=== PATIENT | male | born 1970 | race Caucasian/White ===

== ENCOUNTER 2018-01-29 21:19 | Emergency (ER) | payer OTHER ==
[~2018-01-29] VITALS: Ht 182.8 cm; Wt 143.3 kg
[~2018-01-29 21:19] MED LIST: AMBIEN10 M1 PO; DEPO TESTOS200 MG/ML IM; FISH OIL500 M1 PO; HYDROCODONE BIT1 T11 PO; KLONOPIN1 M1 PO; Motrin,Rufen800 MG PO; NEXIUM40 MG PO; Orphenadrine C100 MG PO; ZOFRAN ODT4 MG SL; Zofran4 MG PO
[2018-01-29 21:35] LABS: BASO # 0.1 10*3/uL (0.0-0.1); BASO % 0.9 % (0.0-1.0); EOS # 0.3 10*3/uL (0.0-0.4); EOS % 2.2 % (1.0-4.0); HEMATOCRIT 44.6 % (42.0-52.0); HEMOGLOBIN 14.8 g/dl (14.0-18.0); LYMPH # 2.8 10*3/uL (1.3-4.4); MEAN CELL VOLUME 90.5 fl (80.0-94.0); MEAN CORPUSCULAR HGB CONC 33.2 g/dl (33.0-37.0); MEAN PLATELET VOLUME 12.3 fl (9.6-12.3); MONO # 0.6 10*3/uL (0.1-1.0); MONO % 5.5 % (3.0-9.0); NEUT # 7.4 10*3/uL (2.3-7.9); NEUT % 66.2 % (47.0-73.0); PLATELET COUNT AUTOMATED 209 10*3/uL (130-400); RED BLOOD COUNT 4.93 10*6/uL (4.50-5.90); RED CELL DISTRI WIDTH 13.2 % (0-14.5); WHITE BLOOD COUNT 11.2 10*3/uL (4.8-10.8)
[2018-01-29 21:45] LABS: ACT PARTIAL THROMBO TIME 23.5 SECONDS (20.8-31.5)
[2018-01-29 21:58] LABS: ALBUMIN 3.5 gm/dl (3.1-4.5); ALKALINE PHOSPHATASE 86 U/L (45-117); BUN 7 mg/dl (7-24); CHLORIDE 105 mmol/L (98-107); POTASSIUM 3.9 mmol/L (3.5-5.1); SGOT/AST 12 IU/L (3-35); SGPT/ALT 33 U/L (12-78); SODIUM 141 mmol/L (136-145); TOTAL PROTEIN 6.8 gm/dL (6.4-8.2)
[2018-01-29 21:59] LABS: TROPONIN I < 0.015 ng/ml (<0.045)
== END 2018-01-29 23:00 | disposition left against medical advice (07) ==
LOC: ED 21:19
PROVIDERS: Emergency Medicine
DX: R07.89 Other chest pain (principal); R73.9 Hyperglycemia, unspecified; G89.4 Chronic pain syndrome; Z79.899 Other long term (current) drug therapy; Z86.73 Personal history of transient ischemic attack (TIA), and cerebral infarction without residual deficits

== ENCOUNTER 2025-04-05 18:18 | Observation (INO) | payer OTHER ==
[~2025-04-05] VITALS: Ht 182.8 cm; Wt 122.1 kg
[2025-04-05] MEDS ORDERED: SODIUM CHLORIDE 0.9% 1,000 ML IV ONE (18:25)
[2025-04-05] MEDS ORDERED: IOHEXOL 350 MG/ML 100 ML VIAL IV ONE ×2 (18:48→18:55)
[2025-04-05] MEDS ORDERED: SODIUM CHLORIDE 0.9% 100 ML IV ONE (18:48)
[2025-04-05 18:54] LABS: BASO # 0.1 10*3/uL (0.0-0.1); BASO % 0.8 % (0.0-1.0); EOS # 0.1 10*3/uL (0.0-0.4); EOS % 1.6 % (1.0-4.0); MEAN CELL VOLUME 93.3 fl (80.0-94.0); MEAN CORPUSCULAR HGB 29.7 pg (27.0-31.0); MEAN PLATELET VOLUME 11.3 fl (9.6-12.3); MONO # 0.6 10*3/uL (0.1-1.0); MONO % 6.8 % (3.0-9.0); NEUT # 5.8 10*3/uL (2.3-7.9); NEUT % 63.8 % (47.0-73.0); NUCLEATED RED BLOOD CELL 0.0 % (0.0-0.0); NUCLEATED RED BLOOD CELL 0.0 10*3/uL (0.0-0.0); PLATELET COUNT AUTOMATED 176 10*3/uL (130-400); RED CELL DISTRI WIDTH 13.5 % (0-14.5)
[2025-04-05] MEDS ORDERED: SODIUM CHLORIDE 0.9% 100 ML BAG IV ONE (18:55)
[2025-04-05] MEDS ORDERED: INFUSION IV SCH (19:00)
[2025-04-05] MEDS ORDERED: RECOMBINANT IV SCH ×2 (19:00→19:01)
[2025-04-05] MEDS ORDERED: ALTEPLASE IV SCH ×2 (19:00→19:01)
[2025-04-05 19:05] LABS: ACT PARTIAL THROMBO TIME 28.0 SECONDS (20.0-32.1)
[2025-04-05 19:20] LABS: BUN 10 mg/dl (9-23)
[2025-04-05 19:42] VITALS: BP 134/78
[2025-04-05] MEDS ORDERED: BISACODYL 10 MG SUPP R PRN (19:45)
[2025-04-05] MEDS ORDERED: Ondansetron Hydrochloride 4 MG/2 ML VIAL IV PRN (19:45)
[2025-04-05] MEDS ORDERED: Acetaminophen/Hydrocodone 5 MG/325 MG TABLET PO PRN (19:45)
[2025-04-05] MEDS ORDERED: BISACODYL 5 MG TAB PO PRN (19:45)
[2025-04-05] MEDS ORDERED: ACETAMINOPHEN 325 MG TAB PO PRN (19:45)
[2025-04-05] MEDS ORDERED: ACETAMINOPHEN 650 MG SUPP R PRN (19:45)
[2025-04-05] MEDS ORDERED: CLOPIDOGREL75 MG PO (19:56)
[2025-04-05] MEDS ORDERED: ENTRESTO 49 MG1 EACH PO (19:57)
[2025-04-05] MEDS ORDERED: SERTRALINE HYD100 MG PO (19:57)
[2025-04-05] MEDS ORDERED: OZEMPIC1 MG/0.71 SQ (19:57)
[2025-04-05] MEDS ORDERED: JARDIANCE25 MG PO (19:58)
[2025-04-05] MEDS ORDERED: TRAMADOL HCL50 MG PO (19:59)
[2025-04-05] MEDS ORDERED: ASPIRIN ADULT L81 M1 PO (20:04)
[2025-04-05] MEDS ORDERED: DOXEPIN25 MG PO (20:04)
[2025-04-05] MEDS ORDERED: Metoclopramide Hydrochloride 10 MG/2 ML VIAL IV ONE (20:05)
[2025-04-05] MEDS ORDERED: ACEBUTOLOL PO (20:05)
[2025-04-05] MEDS ORDERED: PRAVASTATIN SOD40 MG PO (20:05)
[2025-04-05] MEDS ORDERED: diphenhydrAMINE hydrochloride 50 MG/ML VIAL IV ONE (20:05)
[2025-04-05] MEDS ORDERED: [UNRECOGNIZED DRUG - OTHER] PO (20:05)
[2025-04-05] MEDS ORDERED: DEXTROSE 50% 25 GM/50 ML VIAL IV PRN (21:10)
[2025-04-05] MEDS ORDERED: ATORVASTATIN CALCIUM 80 MG TAB PO SCH (22:00)
[2025-04-05] MEDS ORDERED: INSULIN LISPRO 1 UNIT/0.01 ML SQ SCH (22:00)
[2025-04-05 23:30] VITALS: BP 155/88
[2025-04-06] MEDS ORDERED: ATORVASTATIN CA40 M1 PO (01:27)
[2025-04-06 04:00] VITALS: BP 148/78
[2025-04-06 05:20] LABS: BUN 10 mg/dl (9-23); FREE T4 1.24 ng/dl (0.89-1.76); LDL CHOLESTEROL 110 mg/dL (9-159)
[2025-04-06 05:22] LABS: SGPT/ALT < 7 U/L (5-49)
[2025-04-06 06:21] LABS: BASO # 0.1 10*3/uL (0.0-0.1); BASO % 0.8 % (0.0-1.0); EOS # 0.2 10*3/uL (0.0-0.4); EOS % 2.0 % (1.0-4.0); MEAN CELL VOLUME 93.4 fl (80.0-94.0); MEAN CORPUSCULAR HGB 29.5 pg (27.0-31.0); MEAN PLATELET VOLUME 11.3 fl (9.6-12.3); MONO # 0.7 10*3/uL (0.1-1.0); MONO % 8.7 % (3.0-9.0); NEUT # 4.8 10*3/uL (2.3-7.9); NEUT % 57.7 % (47.0-73.0); NUCLEATED RED BLOOD CELL 0.0 % (0.0-0.0); NUCLEATED RED BLOOD CELL 0.0 10*3/uL (0.0-0.0); PLATELET COUNT AUTOMATED 162 10*3/uL (130-400); RED CELL DISTRI WIDTH 13.5 % (0-14.5)
[2025-04-06] MEDS ORDERED: LORazepam 1 MG TAB PO ONE ×2 (07:15→15:50)
[2025-04-06 08:00] VITALS: BP 140/73
[2025-04-06 08:25] LABS: VITAMIN D, 25-HYDROXY 40.8 ng/mL (30-100)
[2025-04-06] MEDS ORDERED: Clopidogrel Hydrogen Sulfate 75 MG TAB PO SCH (10:00)
[2025-04-06] MEDS ORDERED: ASPIRIN ENTERIC COATED 81 MG TAB PO SCH (10:00)
[2025-04-06 12:00] VITALS: BP 121/64
[2025-04-06] MEDS ORDERED: ATORVASTATIN CA80 M1 PO (13:59)
[2025-04-06 16:00] VITALS: BP 133/73
== END 2025-04-06 19:30 | disposition home or self-care (01) ==
LOC: ED 18:18 → EDHOLD 18:58 → ICCU 18:58
PROVIDERS: Emergency Medicine; Student in an Organized Health Care Education/Training Program; ADMIT Internal Medicine; ATTEND Internal Medicine
DX: I63.9 Cerebral infarction, unspecified (principal); G43.909 Migraine, unspecified, not intractable, without status migrainosus; K21.9 Gastro-esophageal reflux disease without esophagitis; I10 Essential (primary) hypertension; R20.0 Anesthesia of skin; E11.65 Type 2 diabetes mellitus with hyperglycemia; Z79.84 Long term (current) use of oral hypoglycemic drugs; Z79.899 Other long term (current) drug therapy